=== PATIENT | female | born 1970 | race Caucasian/White ===

== ENCOUNTER 2018-10-30 06:48 | Inpatient (IN) ==
[2018-10-30] MEDS ORDERED: CeFAZolin Syr 2,000MG/20 ML 2,000 MG/20 ML SYRINGE IVPB ONE (07:31)
[2018-10-30] MEDS ORDERED: Ringers Solution, Lactated 1,000 ML IVC SCH (07:45)
--- NOTE | 2018-10-30 08:00 | Anesthesia Evaluation PreOp ---
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: Other (anxiety, depression) Other Medical History: Other (adenomyosis, uterine fibroid) Anesthesia History: No Prior Anesthetic Complications, Past Anesthesia (ectopic 1990s) : No Alcohol Use: none Drug use: none Medications and Allergies Ferrous Sulfate 325 mg PO BIDWM 09/11/18 [History] LORazepam [Ativan] 0.5 mg PO QID PRN 09/11/18 [History] Allergy/AdvReac Type Severity Reaction Status Date / Time No Known Allergies Allergy Verified 10/30/18 08:03 - Meds/Allergy Pre-op Review Medications Reviewed: Yes Allergies Reviewed: Yes Beta Blockers on Current Med List: No Anesthesia Results - Labs Laboratory Tests 08/04/18 09/11/18 09/11/18 11:40 11:54 11:54 WBC 7.2 Hgb Hct 41.9 Plt Count 225 PT 10.9 INR 1.0 APTT 33.6 Potassium 3.8 Creatinine 0.67 Serum , Qual 10/23/18 10/23/18 10:20 10:20 WBC Hgb 12.7 Hct Plt Count PT INR APTT Potassium Creatinine Serum , Qual Negative - Imaging EKG: report reviewed Anesthesia Exam Weight: 59 kg NPO (# of Hours): > 8 hr - HEENT Pupil (Motor): Pupils equal Mallampati: II Teeth: Normal - UNDERTAKER HELPER LOC: Oriented UNDERTAKER HELPER Motor: Normal RUE, Normal LUE, Normal RLE, Normal LLE, Normal Face UNDERTAKER HELPER Sensory: Normal: RUE, LUE, RLE, LLE, Face - Cardiac Rhythm: Regular Murmur: None - Pulmonary Breath Sounds: bilateral Clear Respiratory Effort: Symmetrical Anesthesia Assess/Plan ASA Score: 2 Level of consciousness: Cooperative, Oriented Anesthetic Plan: General, Spinal Monitoring Plan: Standard Monitors Recovery Plan: PACU
[2018-10-30] MEDS ORDERED: *HR* OxyCODONE Immed Rel 5 MG TABLET PO PRN (08:02)
[2018-10-30] MEDS ORDERED: Ondansetron 4 MG/2 ML VIAL IVP ONE (08:02)
[2018-10-30] MEDS ORDERED: *HR* Meperidine 25 MG/ML SYRINGE IVP PRN (08:02)
[2018-10-30] MEDS ORDERED: *HR* Promethazine 25 MG/ML VIAL IVP PRN (08:02)
[2018-10-30] MEDS ORDERED: Albuterol 2.5 MG/3 ML NEBULIZER IH ONE (08:02)
[2018-10-30] MEDS ORDERED: *HR* HYDROmorphone (PF) 1 MG/ML SYRINGE IVP PRN (08:02)
[2018-10-30] MEDS ORDERED: *HR* FentaNYL (PF) 100 MCG/2 ML VIAL ONE (08:05)
[2018-10-30] MEDS ORDERED: Famotidine 20 MG/2 ML VIAL IVP ONE (08:05)
[2018-10-30] MEDS ORDERED: *HR* Midazolam HCl 2 MG/2 ML VIAL ONE ×2 (08:05→10:50)
[2018-10-30] MEDS ORDERED: Lidocaine -MPF 2% 2 ML VIAL ONE (08:05)
[2018-10-30] MEDS ORDERED: Acetaminophen IV 1,000 MG/100 ML INFUS..BTL IVPB ONE (08:05)
[2018-10-30] MEDS ORDERED: Dexamethasone 4 MG/ML VIAL ONE (08:05)
[2018-10-30] MEDS ORDERED: *HR* Propofol 200 MG/20 ML VIAL IVP ONE ×2 (08:05→08:57)
[2018-10-30] MEDS ORDERED: *HR* Rocuronium Bromide 50 MG/5 ML VIAL ONE (08:05)
[2018-10-30] MEDS ORDERED: Bupivacaine/PF 0.75% in Dex 2 ML AMPUL INFILT ONE (08:32)
--- NOTE | 2018-10-30 08:32 | History & Physical Report ---
Date of Encounter: 10/30/18 Time of Encounter: 08:31 24 Hour HP Update - Instructions Instructions: If the History and Physical is less than 30 days old and was completed prior to A.M. admission and or procedure and has NOT been updated on calendar day of procedure please complete this update prior to performing procedure. - Update Patient reports changes in Medical Condition: No Changes in examination, assessment, or condition: No Changes in Medication: No Preop tests/diagnostics Reviewed: Yes Surgery Remains Indicated: Yes Consent for Planned Operative Procedure(s) Verified: Yes - Pre-Operative Checklist Preoperative Checklist Indicated: Yes Prophylactic Antibiotic Ordered: Yes Home Medications Include Beta Don: No Beta Don Taken Today (Day of Surgery): No Beta Don Taken Yesterday (Day Prior to Surgery): No Is VTE Prophylaxis Indicated?: Yes - Attending Attestation tucker kerr md facog
[2018-10-30] MEDS ORDERED: Morphine Sulfate/PF 5mg/10mL Vial ONE (08:33)
[2018-10-30] MEDS ORDERED: EPHEDrine 50 MG/ML VIAL ONE (09:46)
--- NOTE | 2018-10-30 09:50 | Anesthesia Procedures ---
Date of Encounter: 10/30/18 Time of Encounter: 08:45 Procedures: Anesthesia - Epidural/Spinal Patient examined: Yes Consent Obtained: Yes Supplemental Oxygen: None/Room Air Site Prep: Sterile prep and drape, 0.5% Chlorhexidine/Alcohol Patient position: upright Local Anesthetic: Lidocaine 1% (Lidocaine used for skin), other (Bupivacaine 0.5% 2ml for SAB) Amount of Local Anesthetic used: 0.3 Interspace Used: L4-L5 Blood: No CSF: Yes Paresthesia: No Spinal Needle Gauge: 22 Spinal Dose: 2ml Bupivacaine 0.5% with 200mcg Duramorph
[2018-10-30] MEDS ORDERED: Ketorolac 30 MG/ML VIAL ONE (10:13)
--- NOTE | 2018-10-30 10:25 | OB/GYN Procedure Note ---
Hysterectomy - Diagnosis Date of procedure: 10/30/18 Hysterectomy pre-op: symptomatic leiomyomata Post-op diagnosis: same - Procedure Hysterectomy procedure: total abdominal hysterectomy, left salpingo oophorectomy, right salpingo oophorectomy Surgeon: Solo Dobson Was there an minister assistant present: Yes Adolescent Psychiatrist: Jeri Sams Anesthesia Type: General (intrathecal) Estimated blood loss (cc): 100 Complications: none Urine output (cc): 250 Specimens: right ovary, uterus, cervix, left ovary, right fallopian tube, left fallopian tube Findings: Uterus is enlarged 10-12 week size and had multiple intramural fibroids. Disposition: PACU Narrative: Patient taken to the operating room. After satisfactory anesthesia was achieved, patient placed in supine position Patrick catheter inserted and prepped and draped in usual manner. After appropriate timeout was obtained, the abdomen was entered through standard Maylard incision. The above-noted findings were then seen. The Rachel retractor was placed. Bowel packed superiorly away from the operative field. Infundibular pelvic ligaments on either side were coagulated and cut. Round ligaments coagulated and cut. Bladder flap created anteriorly with sharp and blunt dissection. The cardinal ligament pedicles were coagulated and cut. Bladder was dissected away from lower uterine segment. Uterosacral ligaments were clamped cut suture-ligated with a 0 Monocryl and held. The vagina was entered posteriorly. The uterus cervix and attached adnexa were resected and sent to pathology for analysis. The cuff was closed with 0 Monocryl. After assurance hemostasis, the peritoneum was reapproximated with a 2-0 Vicryl. After assurance hemostasis, the packs and retractor were removed. The abdomen was closed standard fashion using a #1 strata fix PDS on the fascia and a 3-0 Monocryl in the skin. Sterile dressing was applied. Patient did well was taken to recovery in satisfactory condition. Counts were correct.
[2018-10-30] MEDS ORDERED: *HR* HYDROcodone/Acet 5/325 mg TABLET PO PRN (11:21)
[2018-10-30] MEDS ORDERED: Naloxone 0.4 MG/ML INJ IVP PRN (11:21)
[2018-10-30] MEDS ORDERED: Ondansetron 4 MG/2 ML VIAL IVP PRN (11:21)
[2018-10-30] MEDS ORDERED: Sennosides 8.6 MG TABLET PO PRN (11:21)
[2018-10-30] MEDS ORDERED: *HR* LORazepam 0.5 MG TABLET PO PRN (11:21)
[2018-10-30] MEDS ORDERED: *HR* OxyCODONE/APAP 5/325 TABLET PO PRN (11:21)
[2018-10-30] MEDS ORDERED: Ringers Solution, Lactated 1,000 ML ONE (11:27)
--- NOTE | 2018-10-30 11:39 | Anesthesia Evaluation Post Op ---
Date of Encounter: 10/30/18 Time of Encounter: 11:20 - Vital Signs Vital Signs: Vital Signs/O2 Sat, Most Current Temp Pulse Resp BP Pulse Ox 98.7 F 115 16 124/77 99 10/30/18 11:14 10/30/18 11:14 10/30/18 11:14 10/30/18 11:14 10/30/18 11:14 - Lungs Lungs: Clear Ascult./Percussion - Airway Airway: Non-obstructed - Cardiovascular Regular Rate - Mental Status Mental Status: Alert & Oriented, Answers Appropriately - Pain Pain Scale: 0 Pain Scale used: Numeric (1 - 10) - Nausea Vomiting Nausea Vomiting: Unable to assess - Hydration Hydration: Tolerates oral liquids - Discharge PostOp Status: Transfer Patient to floor
[2018-10-31 08:58] LABS: Basophils % 0.2 %; Eosinophils % 0.1 %; Hematocrit 31.7 % (35.3-44.9); Hemoglobin 9.9 g/dL (11.5-15.4); Immature Granulocytes % 0.7 % (0-4); Lymphocytes # 1.2 K/mcL (0.6-4.6); Lymphocytes % 12.9 %; Mean Corpuscular HGB Conc 31.2 g/dL (31.6-35.5); Mean Corpuscular Hemoglobin 27.5 pg (28.0-33.3); Mean Corpuscular Volume 88.1 fL (83.0-100.0); Mean Platelet Volume 11.9 fL (9.4-12.4); Monocytes % 11.4 %; Neutrophils # 6.7 K/mcL (1.6-8.9); Platelet Count 237 K/mcL (140-400); Red Cell Distribution Width 12.8 % (11.5-14.5); Segmented Neutrophils % 74.7 %
[2018-10-31 09:06] LABS: eGFR For African Americans > 60 (> 60); eGFR For Non-African Americans > 60 (> 60)
--- NOTE | 2018-10-31 10:47 | AcuteCareSurgery Progress Note ---
Date of Encounter: 10/31/18 Time of Encounter: 10:45 - Assessment and Plan (1) Uterine fibroid Current Visit: Yes Status: Resolved Qualifiers: Uterine leiomyoma location: intramural Qualified Code(s): D25.1 - Intramural leiomyoma of uterus (2) Postoperative abdominal pain Current Visit: Yes Status: Acute Subjective Patient reports: feels better, still having pain, tolerating liquids well, no flatus, no bowel movement, afebrile Narrative: Patient has been slow to ambulate. Patient has been slow to eat. Objective Vital Signs - Last 8 Hours Temp Pulse Resp BP Pulse Ox 10/31/18 08:16 98.0 F 90 16 115/75 10/31/18 05:00 98.1 F 77 14 106/70 100 Intake and Output 10/30/18 10/31/18 10/31/18 23:59 07:59 15:59 Intake Total 650 / 650 120 / 120 Output Total 900 / 2250 800 / 1300 500 / 1300 Balance -250 / -1600 -800 / -1180 -380 / -1180 Intake: Oral 650 / 650 120 / 120 Output: Catheter 900 / 1900 800 / 1300 500 / 1300 Other: Meal Breakfast Percent of Meal Consumed 5% Weight 61.734 kg Patient Weight 10/31/18 23:59 Weight 61.734 kg - General physical appearance well developed, well nourished, no distress - Respiratory normal expansion, clear to auscultation - Cardiovascular Cardiovascular exam: Present: RRR - Abdomen Abdomen: Present: bowel sounds present, soft, non tender - Incision Incision: Present: clean and dry - Neurologic CN 2-12 grossly intact - Labs 10/31/18 08:33 10/31/18 08:33 Diabetes panel 10/31/18 Range/Units 08:33 Creatinine 0.55 L (0.60-1.20) mg/dL Pituitary panel 10/31/18 Range/Units 08:33 Creatinine 0.55 L (0.60-1.20) mg/dL Adrenal panel 10/31/18 Range/Units 08:33 Creatinine 0.55 L (0.60-1.20) mg/dL - VTE Documentation of Mechanical Device: Intermittent pneumatic compression device Consult Discharge Plan - Plan Referrals: Nona Morrow, [facility] [employer]OR [Primary Care Provider] -
[2018-10-31] MEDS ORDERED: Simethicone 80 MG TAB.CHEW PO PRN (15:35)
[2018-10-31] MEDS: Ibuprofen 600 MG TABLET PO PRN (20:30)
[2018-11-01] MEDS: Ibuprofen 600 MG TABLET PO PRN (03:15)
[2018-11-01 03:19] VITALS: BP 132/81
--- NOTE | 2018-11-01 08:12 | Discharge Summary ---
Date of Encounter: 11/01/18 Time of Encounter: 08:12 - Discharge Diagnosis (1) Uterine fibroid Priority: Primary Status: Resolved Qualifiers: Uterine leiomyoma location: intramural Qualified Code(s): D25.1 - Intramural leiomyoma of uterus (2) Postoperative abdominal pain Priority: Secondary Status: Acute (3) Postoperative voiding difficulty Priority: Secondary Status: Acute Comments: Will go home with leg bag . - Discharge Medications Prescriptions: New HYDROcodone/Acet 5/325 mg [Flint 5-325 mg] 1 tab PO Q4HR PRN 7 Days #28 tablet PRN Reason: Moderate Pain (4-6) No Action LORazepam [Ativan] 0.5 mg PO DAILY PRN PRN Reason: Anxiety Ferrous Sulfate 325 mg PO BIDWM Home Medications: Ferrous Sulfate 325 mg PO BIDWM 09/11/18 [History] LORazepam [Ativan] 0.5 mg PO DAILY PRN 09/11/18 [History] HYDROcodone/Acet 5/325 mg [Flint 5-325 mg] 1 tab PO Q4HR PRN 7 Days #28 tablet 11/01/18 [Rx] Allergies/Adverse Reactions: Allergy/AdvReac Type Severity Reaction Status Date / Time No Known Allergies Allergy Verified 10/30/18 08:03 Data Procedures and tests throughout hospitalization: Laboratory Tests 10/31/18 10/31/18 08:33 08:33 WBC 9.0 RBC 3.60 L Hgb 9.9 L Hct 31.7 L MCV 88.1 MCH 27.5 L MCHC 31.2 L RDW 12.8 Plt Count 237 MPV 11.9 Immature Gran % 0.7 Seg Neutrophils % 74.7 Lymphocytes % 12.9 Monocytes % 11.4 Eosinophils % 0.1 Basophils % 0.2 Neutrophils # 6.7 Lymphocytes # 1.2 Monocytes # 1.0 Eosinophils # 0.0 Basophils # 0.0 Creatinine 0.55 L Est GFR ( Amer) > 60 Est GFR (Non-Af Amer) > 60 Labs on day of discharge: Labs from last 24 hours 10/31/18 10/31/18 08:33 08:33 WBC 9.0 RBC 3.60 L Hgb 9.9 L Hct 31.7 L MCV 88.1 MCH 27.5 L MCHC 31.2 L RDW 12.8 Plt Count 237 MPV 11.9 Immature Gran % 0.7 Seg Neutrophils % 74.7 Lymphocytes % 12.9 Monocytes % 11.4 Eosinophils % 0.1 Basophils % 0.2 Neutrophils # 6.7 Lymphocytes # 1.2 Monocytes # 1.0 Eosinophils # 0.0 Basophils # 0.0 Creatinine 0.55 L Est GFR ( Amer) > 60 Est GFR (Non-Af Amer) > 60 Date of admission: 10/30/18 11:18 Primary care physician: Nona Morrow CNP - Patient Status Disposition: Home, Self-Care Condition: Good Functional capacity at discharge: independent ambulation Overall status at discharge: patient is progressing back to baseline - Discharge Instructions Follow Up With: Nona Morrow CNP [Primary Care Provider] - Additional Instructions: There are many types of gynecologic surgery. Below, you will find groups of instructions related to caring for yourself after your procedure. there may be instructions that do not apply to you depending on the procedure that you had. Before you go home, your nurse will explain these instructions and let you know any special instructions that you may have. MEDICATIONS: -Continue taking your home medications as prescribed by your doctor prior to surgery. You will be notified of any changes in home medications before leaving the hospital. -A prescription for pain medication may be given to you. Take it as directed. It is important to control your pain during recovery. -Do not stop taking antibiotics if they were prescribed for you. Take them until they are all gone. Antibiotics are sometimes used to prevent infection after surgery. BOWEL MOVEMENTS: -You may not have a bowel movement for a few days after surgery. The first one may be difficult to pass. Do not strain in order to go, and allow yourself plenty of time when going for the first time following your surgery. -To help soften your stool, eat a diet high in fiber. This includes foods such as cereals, whole grain breads and vegetables. You can also take a fiber supplement or stool softeners, which your provider may prescribe for you. DIET: -Your appetite may be decreased following surgery. You will be eating regular food before you are discharged from the hospital. Start out with small amounts of food and increase your meals as you are able to tolerate them without feeling nauseated. -Eat healthy foods to help you heal more quickly and increase your energy. Avoid foods that cause gas, as this will make you feel uncomfortable. -Drink 6-8 glasses of water each day. SMOKING: -Smoking increases your chances of post-surgical complications. It is never too late to quit. Ask your nurse or provider for information to help you quit smoking. ACTIVITY: -Restrict yourself to light activity and increase your activity level slowly, resting frequently. -Be aware your pain medication may cause drowsiness. -It usually takes 4-8 weeks for the body to heal. -You may walk slowly. Limit stair climbing. Do not exercise until the provider tells you it is safe to do so. -No douching, tampons or sex for 6 weeks. This will allow time for healing. You can no longer get after having a hysterectomy but will still need to protect yourself from sexually transmitted diseases. -Lift nothing heavier than 10-15 pounds for 2 weeks. -You can drive in about 2 weeks, unless otherwise instructed by your provider. -You can expect to return to work or school and other normal activities in about 6 weeks or as directed by your provider. -When you get home, you may shower normally. If you have an incision, wash the area with soap and water and dry thoroughly after showering. You may have steri-strips (thin strips of tape used to help hold the incision together while it heals). If these are present, do not remove them. Keep the area of your incision clean and dry. STRESS AND MOOD -A hysterectomy may change the way that you view yourself. These are normal feelings. Talk to your family and health care provider about these feelings. If you feel depressed, seek counseling or talk to your provider about treatment options. It is important in the healing process to have a healthy mind. WHEN TO CALL THE DOCTOR: -If your stitches are swollen, red or have drainage coming from them or if you notice them coming apart. It is normal for your incision to feel numb up to a year. -If you are having chills, fever or a reaction to your medicine. -If your incision is bleeding or you have increased pain in your incision. -If within an hour you have soaked a sanitary pad with vaginal bleeding. -If you are unable to urinate or it has been 4-6 hours since you have urinated. Also, if you have burning with urination or feel like you cant completely empty your bladder; call your provider for further instructions. -If you have a smelly discharge coming from your incision or vagina. -If you have any questions about your surgery or medications. If you have difficulty breathing, chest pain, uncontrolled bleeding or any other emergency, call 911 or report to the nearest emergency department immediately. 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 Time Attestation: Total time spent providing and/or coordinating discharge services: Exam - Constitutional Vitals: Temp Pulse Resp BP Pulse Ox 98.0 F 108 18 132/81 99 11/01/18 03:18 11/01/18 03:18 11/01/18 03:18 11/01/18 03:18 11/01/18 03:18 General appearance IM: A&O X 3 - Respiratory Respiratory exam: Present: CTAB - Cardiovascular Cardiovascular exam IM: Present: RRR - GI/Abdominal GI/Abdominal exam IM: soft Incision: normal, dry, intact - Extremities Exam Extremities exam IM: Present: full ROM - Neurological Exam Neurological exam: CN II-XII intact - VTE Documentation of Mechanical Device: Intermittent pneumatic compression device - Attending Attestation tucker kerr md facog
== END 2018-11-01 08:57 | disposition home or self-care (01) | DRG 743 ==
LOC: SAMDAY 06:48 → 1NENUOBS 11:18
PROVIDERS: ADMIT Obstetrics & Gynecology; ATTEND Obstetrics & Gynecology